=== PATIENT | male | born 1960 | race Caucasian/White ===

== ENCOUNTER 2020-01-09 08:46 | Emergency (ER) | payer OTHER ==
[~2020-01-09] VITALS: Ht 188 cm; Wt 164.0 kg
[2020-01-09] MEDS ORDERED: LIDOcaine 5% patch TP STA (09:53)
[2020-01-09] MEDS ORDERED: dexamethasone sod phosphate 10mg/ml inj IM STA (09:53)
[2020-01-09] MEDS ORDERED: ketorolac trometh inj. 60 MG/2 ML VIAL IM ONE (09:55)
[2020-01-09 10:32] VITALS: BP 150/115
[2020-01-09] MEDS ORDERED: METH4TAB81 PO (10:47)
[2020-01-09] MEDS ORDERED: LIDO700A32 TOP (10:47)
== END 2020-01-09 10:55 | disposition home or self-care (01) ==
LOC: ER 08:48
DX: M54.5 Low back pain (principal)
CPT/HCPCS: 96372; 99284; J1100; J1885

== ENCOUNTER 2020-07-12 09:48 | Emergency (ER) | payer BC, OTHER ==
[~2020-07-12] VITALS: Ht 188 cm; Wt 150.0 kg
[~2020-07-12 09:48] MED LIST: LIDO700A32 TOP; METH4TAB81 PO
[2020-07-12] MEDS ORDERED: LEVO500T89 PO (11:50)
[2020-07-12 12:14] VITALS: BP 186/106
== END 2020-07-12 12:16 | disposition home or self-care (01) ==
LOC: ER 09:49
DX: J18.1 Lobar pneumonia, unspecified organism (principal); Z20.822 Contact with and (suspected) exposure to COVID-19; G89.29 Other chronic pain; Z98.890 Other specified postprocedural states; Z79.899 Other long term (current) drug therapy; Z79.2 Long term (current) use of antibiotics
CPT/HCPCS: 71045; 87635; 99283; C9803

== ENCOUNTER 2023-11-06 07:45 | Day surgery (SDC) | payer BC, OTHER ==
[2023-11-06] VITALS (12 sets, daily range): BP systolic 107–167; BP diastolic 67–98; PULSE 15–96; RESP 11–21; TEMP 98; O2SAT 94–98
[~2023-11-06] VITALS: Ht 188 cm; Wt 152.7 kg
[2023-11-06] MEDS ORDERED: nitroGLYCERIN 0.4mg SUBLingual tab SL PRN ×2 (08:10→11:05)
[2023-11-06] MEDS ORDERED: LORazepam 0.5 MG tablet PO PRN (08:10)
[2023-11-06] MEDS ORDERED: diphenhydrAMINE 25mg capsule PO PRN (08:10)
[2023-11-06] MEDS ORDERED: DEXTROSE 15 GM of carb/4 tabs (each vial/BOTTLE has 4 tablets) PO PRN ×2 (08:45)
[2023-11-06] MEDS ORDERED: dextrose 50%-water 50ml dispensing syringe IV PRN ×2 (08:45)
[2023-11-06] MEDS ORDERED: glucagon, human recombinant 1mg kit SUBCUT PRN (08:45)
[2023-11-06] MEDS ORDERED: CYCL5TAB PO (08:52)
[2023-11-06] MEDS ORDERED: iohexol 350MG/ML 100ml bottle IV ONE (08:52)
[2023-11-06] MEDS ORDERED: fentaNYL/PF 50MCG/1 ML 2ML syringe ONE (08:52)
[2023-11-06] MEDS ORDERED: AMLO10TA13 PO (08:52)
[2023-11-06] MEDS ORDERED: HYDR-3968 PO (08:52)
[2023-11-06] MEDS ORDERED: midazolam 1 mg/ML 2ml injection ONE ×2 (08:52→09:42)
[2023-11-06] MEDS ORDERED: FLO0.4C PO (08:52)
[2023-11-06] MEDS ORDERED: AMLO2.5T5 PO (08:52)
[2023-11-06] MEDS ORDERED: ATOR10TA70 PO (08:52)
[2023-11-06] MEDS ORDERED: SITA50TA7 PO (08:52)
[2023-11-06] MEDS ORDERED: LIDOcaine 1% 30ml preserv. free vial ONE (08:52)
[2023-11-06] MEDS ORDERED: CELE-127 PO (08:52)
[2023-11-06] MEDS ORDERED: HYDR100T12 PO (08:52)
[2023-11-06] MEDS ORDERED: LOSA1TAB39 PO (08:52)
[2023-11-06] MEDS ORDERED: iohexol 350 MG/ML 50ML vial IV ONE ×3 (08:52→09:53)
[2023-11-06] MEDS ORDERED: METF-438 PO (08:52)
[2023-11-06] MEDS: normal saline 1,000 ML IV SCH (09:00)
[2023-11-06 09:19] LABS: BASOPHILS # (AUTO) 0.1 X10'3 (0-0.2); BASOPHILS % (AUTO) 0.6 % (0-1); EOSINOPHILS # (AUTO) 0.6 X10'3 (0-0.9); EOSINOPHILS % (AUTO) 5.7 % (0-6); HEMATOCRIT 45.3 % (42.0-52.0); HEMOGLOBIN 15.4 g/dl (14.0-17.9); LYMPHOCYTES # (AUTO) 1.6 X10'3 (1.1-4.8); LYMPHOCYTES % (AUTO) 15.2 % (21-51); MEAN CORPUSCULAR HEMOGLOBIN 31.6 PG (27.0-31.0); MEAN CORPUSCULAR HGB CONC 33.9 g/dL (33.0-36.5); MEAN CORPUSCULAR VOLUME 93.1 FL (78-98); MONOCYTES # (AUTO) 0.6 X10'3 (0-0.9); MONOCYTES % (AUTO) 5.9 % (2-12); NEUTROPHILS # (AUTO) 7.8 X10'3 (1.8-7.7); NEUTROPHILS % (AUTO) 72.6 % (42-75); PLATELET COUNT 313 X10'3 (140-440); RED BLOOD COUNT 4.86 X10'6 (4.70-6.10); RED CELL DISTRIBUTION WIDTH 12.7 % (11.5-14.5); WHITE BLOOD COUNT 10.8 X10'3 (4.5-11.0)
[2023-11-06 09:41] LABS: ALBUMIN 4.2 G/DL (3.4-5.0); ANION GAP 9 (8-16); BLOOD UREA NITROGEN 18 MG/DL (7-18); BUN/CREATININE RATIO 20.5 (10.0-20.0); CALCIUM 9.7 MG/DL (8.5-10.1); CHLORIDE 100 MMOL/L (99-107); CREATININE 0.88 MG/DL (0.60-1.10); GLUCOSE 320 MG/DL (70-104); POTASSIUM 3.7 MMOL/L (3.5-5.1); SODIUM 139 MMOL/L (135-145); TOTAL CARBON DIOXIDE 29.6 MMOL/L (24-32); eCRCL 101 ML/MIN; eGFR 88 ML/MIN
[2023-11-06] MEDS ORDERED: diphenhydrAMINE 50 mg/ml inj ONE (09:43)
[2023-11-06] MEDS ORDERED: proCHLORperazine 10 MG/2 ml inj ONE (09:45)
[2023-11-06 09:51] LABS: APTT 26 SECONDS (22-32); PROTHROMBIN TIME 10.4 SECONDS (9.0-12.0)
[2023-11-06] MEDS ORDERED: normal saline 1000ml 1,000 ML IV SCH (11:00)
[2023-11-06] MEDS ORDERED: ondansetron/PF 4mg/2ml inj IV PRN (11:00)
[2023-11-06] MEDS ORDERED: OXAZEpam 15mg capsule PO PRN (11:05)
[2023-11-06] MEDS ORDERED: HYDROcodone/acetaminophen 5mg/325mg tablet PO PRN (11:05)
[2023-11-06] MEDS ORDERED: proCHLORperazine 10 MG/2 ml inj IV PRN (11:05)
[2023-11-06] MEDS: HYDROcodone/acetaminophen 10/325mg tab PO PRN (13:13)
== END 2023-11-06 16:00 | disposition home or self-care (01) ==
LOC: SSTAY O 07:45
PROVIDERS: ATTEND Internal Medicine Cardiovascular Disease
DX: R94.39 Abnormal result of other cardiovascular function study (principal); I25.119 Atherosclerotic heart disease of native coronary artery with unspecified angina pectoris; I10 Essential (primary) hypertension; E11.9 Type 2 diabetes mellitus without complications; E66.9 Obesity, unspecified; J44.9 Chronic obstructive pulmonary disease, unspecified; Z68.41 Body mass index [BMI] 40.0-44.9, adult
CPT/HCPCS: 36415; 71046; 80048; 85025; 85610; 85730; 93005; 93458; 93567; 99152; 99153; J0780; J1200; J1644; J2250; J3010; J3490; J7030; Q9967; A4615; A6258; C1760